=== PATIENT | female | born 1970 | race Caucasian/White ===

== ENCOUNTER → 2020-09-27 | Outpatient (CLI) | payer BC ==
[~2020-09-27] MED LIST: NORCO 5-325 TA1 EACH PO
== END ==
LOC: MAMO 09:30
DX: Z12.31 Encounter for screening mammogram for malignant neoplasm of breast (principal); Z90.710 Acquired absence of both cervix and uterus
CPT/HCPCS: 77063; 77067

== ENCOUNTER → 2020-11-21 | Outpatient (CLI) | payer BC | LOC: KOH-I 16:13 | DX: R05 Cough (principal); J98.4 Other disorders of lung | CPT/HCPCS: 71046 ==

== ENCOUNTER → 2021-02-21 | Outpatient (CLI) | payer OTHER | LOC: RAD 11:49 | DX: S40.921A Unspecified superficial injury of right upper arm, initial encounter (principal); M25.521 Pain in right elbow; W01.0XXA Fall on same level from slipping, tripping and stumbling without subsequent striking against object, initial encounter; M25.421 Effusion, right elbow | CPT/HCPCS: 73080; 73090; 73110; 73130 ==

== ENCOUNTER 2021-12-23 16:57 | Observation (INO) | payer BC, OTHER ==
[~2021-12-23] VITALS: Ht 157.5 cm; Wt 81.6 kg
[2021-12-23 18:23] LABS: HEMOGLOBIN 14.4 gm/dl (12.3-15.3); RED BLOOD COUNT 4.64 M/UL (4.00-5.10); WHITE BLOOD COUNT 10.1 K/UL (4.5-11.0)
[2021-12-23 20:04] LABS: BUN/CREATININE RATIO 30 (0-10)
[2021-12-24 03:42] LABS: HEMOGLOBIN 13.5 gm/dl (12.3-15.3); RED BLOOD COUNT 4.29 M/UL (4.00-5.10); WHITE BLOOD COUNT 11.1 K/UL (4.5-11.0)
[2021-12-24 04:04] LABS: BUN/CREATININE RATIO 29 (0-10)
[2021-12-24] MEDS ORDERED: ESCITALOPRAM OX20 MG PO (10:49)
[2021-12-24] MEDS ORDERED: WOMEN'S 50 PLU1 EACH PO (10:50)
[2021-12-24] MEDS ORDERED: ZYRTEC10 M3 PO (10:51)
[2021-12-24] MEDS ORDERED: METHOCARBAMOL500 MG PO (10:52)
[2021-12-24] MEDS ORDERED: PROBIOTIC-DIGE1 EACH PO (10:58)
[2021-12-25] MEDS ORDERED: MEDROL DOSEPAK 24 MG PO (09:28)
--- NOTE | 2021-12-25 11:56 | NUR ---
SPOKE WITH DR. BISHOP REGARDING PATIENTS ALLERGY TO PREDNISONE AND HER SPOKEN CONCERN OF THE MEDROL DOSEPAK. STATED PATIENT IS NOT ALLERGIC TO MEDROL DOSEPAK. SHE IS RECEIVING THIS MEDICINE IN THE HOSPITAL. EXPLAINED TO PATIENT WHAT DR. BISHOP SAID. PATIENT AGREED SHE WOULD TAKE THIS MED IF SHE IS RECEIVING IT HERE. VERBALIZED UNDERSTANDING. Brittney GALDAMEZ.
--- NOTE | 2021-12-25 12:36 | NUR ---
PATIENT GOING HOME WITH PERSCRIPTION OF METHYLPREDNISOLONE, STATES SHE IS ALLERGIC. PROVIDER CONTACTED BY DISCHARGE NURSE AND WAS ADAMANT THAT PATIENT HAD BEEN TAKING MEDICATION ALREADY AND THAT SHE IS NOT ALLERGIC.
== END 2021-12-25 13:12 | disposition home or self-care (01) ==
LOC: ER1 16:57 → CDU 18:51 → MED SURG 4 12-24 09:06
PROVIDERS: Emergency Medicine; ADMIT Internal Medicine
DX: T88.6XXA Anaphylactic reaction due to adverse effect of correct drug or medicament properly administered, initial encounter (principal); T39.8X5A Adverse effect of other nonopioid analgesics and antipyretics, not elsewhere classified, initial encounter; J96.01 Acute respiratory failure with hypoxia; G89.29 Other chronic pain; M54.30 Sciatica, unspecified side; F41.8 Other specified anxiety disorders; J30.9 Allergic rhinitis, unspecified; G47.30 Sleep apnea, unspecified; Y84.8 Other medical procedures as the cause of abnormal reaction of the patient, or of later complication, without mention of misadventure at the time of the procedure; Y82.9 Unspecified medical devices associated with adverse incidents; Z88.6 Allergy status to analgesic agent; Z90.710 Acquired absence of both cervix and uterus; Z88.5 Allergy status to narcotic agent; Z88.8 Allergy status to other drugs, medicaments and biological substances; Z98.890 Other specified postprocedural states; Z90.49 Acquired absence of other specified parts of digestive tract; Z20.822 Contact with and (suspected) exposure to COVID-19
CPT/HCPCS: 36600; 71045; 80053; 82550; 82553; 82803; 83735; 83880; 84484; 85025; 85027; 93005; 94640; 94664; 94760; 96374; 96375; 96376; 99285; G0378; J0171; J1200; J1650; J2920; J2930; U0002